=== PATIENT | female | born 1990 | race Caucasian/White ===

== ENCOUNTER 2017-01-30 09:52 | Emergency (ER) | payer SELFPAY ==
[~2017-01-30] VITALS: Ht 157.5 cm; Wt 59.4 kg
[~2017-01-30 09:52] MED LIST: ADVIL200 MG; NORTREL 1/351 TABLET
[2017-01-30] MEDS ORDERED: TESSALON PERLE100 MG PO (11:13)
[2017-01-30] MEDS ORDERED: ROBITUSSIN NIG237 ML PO (11:13)
[2017-01-30] MEDS ORDERED: GUAIFENESIN600 M1 PO (11:13)
[2017-01-30] MEDS ORDERED: FLONASE16 G1 BOTH NARES (11:13)
[2017-01-30 11:51] VITALS: BP 119/71
== END 2017-01-30 11:52 | disposition home or self-care (01) ==
LOC: EME 09:52
DX: J06.9 Acute upper respiratory infection, unspecified (principal); J30.2 Other seasonal allergic rhinitis; F17.200 Nicotine dependence, unspecified, uncomplicated; Z71.6 Tobacco abuse counseling
CPT/HCPCS: 99281; 99283